=== PATIENT | female | born 2000 | race Caucasian/White ===

== ENCOUNTER 2025-03-07 15:54 | Emergency (ER) | payer BC, SELFPAY ==
[2025-03-07 16:04] VITALS: BP 152/96; PULSE 99; RESP 20; TEMP 37.2; O2SAT 100
--- NOTE | 2025-03-07 16:05 | ED_ITS ---
HPI - URI/Sore Throat General Chief Complaint: Upper Respiratory Infection Stated Complaint: diagnosed strep Time Seen by Provider: 03/07/25 16:19 Source: patient and RN notes reviewed Mode of arrival: ambulatory Limitations: no limitations History of Present Illness HPI Narrative: 24-year-old female presents with concern for getting tested for COVID and flu. Reports she was diagnosed with strep throat yesterday and has started antibiotics but then found out she was exposed to COVID at work. She has been taking her antibiotic as directed. Reports her symptoms are starting to improve MD elicited complaint: sore throat Related Data Home Medications ?Medication ?Instructions ?Recorded ?Confirmed ?Last Taken ?Type amoxicillin 500 mg capsule 500 mg PO Q12H 03/07/25 Unknown History Allergies Allergy/AdvReac Type Severity Reaction Status Date / Time fluoxetine (From [employer]) Allergy Unknown Unknown Verified 03/07/25 16:11 nifedipine Allergy Unknown Unknown Verified 03/07/25 16:11 Review of Systems Review of Systems: CONSTITUTIONAL: Reports malaise, fever. EYES: Denies visual changes, redness, or discharge. ENT: Reports rhinorrhea, congestion, and sore throat. CARDIOVASCULAR: Denies chest pain, palpitations, or edema. RESPIRATORY: Reports cough. Denies dyspnea. GASTROINTESTINAL: Denies abdominal pain, nausea, vomiting, diarrhea SKIN: Denies rash or itching. MUSCULOSKELETAL: Reports myalgia. NEUROLOGIC: Reports headache. All systems reviewed & are unremarkable except as noted in HPI and below PMFSH Comments At time of signature, agree with nursing past medical, surgical, social and family history. There is no relevant family history pertinent to the presenting complaint Exam Narrative: GENERAL: Well-appearing, well-nourished, and in no acute distress. HEAD: Normocephalic EYES: PERRLA, conjunctivae clear ENT: Nares clear. Mucous membranes moist. TM pearly lawson with dull light reflex bilaterally; no tragal tenderness. Oropharynx not erythematous without lesions. Tonsils not enlarged and without exudate, no drooling, no hoarseness, no trismus, uvula midline. NECK: Supple. No lymphadenopathy CHEST: Clear to auscultation, breath sounds equal. No wheezing, rhonchi, rales, or stridor. No respiratory distress, speaks in full sentences. HEART: Regular rate and rhythm. No murmur heard. SKIN: Warm, dry, no rash. NEURO: Alert and oriented x3. PSYCH: Normal mood and affect Course Course Emergency Course: Patient is aware of diagnosis, understands and agrees to treatment plan. Ant icipatory guidance given. Patient agrees to follow-up as directed and is aware of reasons to seek care at the emergency department. Portions of this record may have been created with voice recognition software Level of Care: Express Care Visit Vital Signs Vital signs: Reviewed. MDM - URI/Sore Throat MDM Narrative Medical decision making narrative: Differential diagnosis considered: [place] virus, strep pharyngitis, allergic rhinitis, upper respiratory tract infection, sinusitis, rhinosinusitis, nasopharyngitis. viral pharyngitis, otitis media, otitis externa, pneumonia, bronchitis, viral cough syndrome, viral syndrome, and influenza. Exam findings show no acute concerns or changes; patient is non-toxic appearing and is in no distress. Patient is appropriate for outpatient treatment and follow-up. Lab Data Attestation: I reviewed the patient's lab results. Critical Care Time Critical Care Time Critical Care Time: No Discharge Plan Discharge Clinical Impression: Upper respiratory infection Patient Disposition: Home Condition: Stable Instructions: Upper Respiratory Infection (ED) Additional Instructions: Your rapid COVID and flu tests are negative Continue to take your antibiotic as needed for strep throat. Replace her toothbrush after you have been on antibiotics for 24 hours Also, recommend symptomatic treatment includes: rest, fluids, and increase humidity of the air at home. Recommend Acetaminophen as directed on the bottle to reduce fever, pain, headache. Avoid smoking/second-hand smoke. Please schedule a follow-up visit with your personal physician for further evaluation and treatment within 3-5days. If your symptoms persist, change or worsen significantly before you can contact your personal physician then please, without delay, go to the emergency department for further evaluation. Patient Language: French Follow-up/Referrals: PHYSICIAN,MERCHANDISE ADJUSTMENT CLERK [Primary Care Provider, Internal Medicine] Stand Alone Forms: Work/School Release IP Time of Disposition: 16:28
[2025-03-07 16:29] LABS: EDCOVIDSCREEN Negative (Negative); EDINFLUASCREEN Negative (Negative); EDINFLUBSCREEN Negative (Negative)
== END 2025-03-07 16:31 | disposition home or self-care (01) ==
PROVIDERS: Emergency Provider Nurse Practitioner
DX: J06.9 Acute upper respiratory infection, unspecified (principal); Z20.822 Contact with and (suspected) exposure to COVID-19
CPT/HCPCS: 87426; 87804; 99202; G0463

== ENCOUNTER 2025-03-17 19:28 | Emergency (ER) | payer OTHER, BC, SELFPAY ==
--- NOTE | 2025-03-17 19:29 | ED_ITS ---
HPI - URI/Sore Throat General Chief Complaint: Upper Respiratory Infection Stated Complaint: throat swollen sore Time Seen by Provider: 03/17/25 19:29 Source: patient Mode of arrival: ambulatory Limitations: no limitations History of Present Illness HPI Narrative: Nhung is a 24-year-old female patient presenting to the clinic today with complaints of sore throat. She reports she was seen approximately 2 weeks ago for strep pharyngitis and prescribed prescription for amoxicillin. Took the full course of amoxicillin and states she felt better for 2 days and her symptoms return. She denies any fevers, chills, body aches. Feels as though she has anterior cervical and posterior cervical lymphadenopathy. She reports she feels as though she is having difficulty swallowing and feels as though her throat is swelling. Related Data Allergies Allergy/AdvReac Type Severity Reaction Status Date / Time fluoxetine (From [employer]) Allergy Unknown Unknown Verified 03/17/25 19:36 nifedipine Allergy Unknown Unknown Verified 03/17/25 19:36 Review of Systems Review of Systems: Pertinent positives per HPI. Patient denies any fever, chills, rash, headache, visual changes, dizziness, cough, shortness of breath, chest pain, palpitations, nausea, vomiting, diarrhea, constipation, abdominal pain, or any urinary issues. PMFSH Comments At the time of my signature, I reviewed and agree with the nursing past medical, surgical, social, and family history. There is no relevant family history pertinent to the patient complaint. Exam Narrative: General: Well-developed, well nourished, in no apparent distress Head: Normocephalic, atraumatic Eyes: Pupils equally round and reactive to light bilaterally, EOM intact, sclera and conjunctive clear, no discharge, lids normal Ears: TMs intact and clear, ear canals clear, no drainage, grossly hearing normal. Nose: Nares patent, no discharge, no inflammation, no sinus tenderness. Mouth: Oral pharynx red with bilateral tonsillar enlargement without lesions or masses, good dentition, MMM. Neck: Supple, trachea midline, enlargement of bilateral anterior and left posterior cervical nodes, no thyroid masses or goiter palpable. Cardio: Regular rate and rhythm, s1 and s2 normal, no murmur appreciated. Resp: Clear to auscultation bilaterally, no rhonchi, rales, wheezing or rubs Course Course Emergency Course: Portions of this record may have been created with voice recognition software. Level of Care: Express Care Visit Vital Signs Vital signs: Vital Signs Temperature 36.9 C 03/17/25 19:31 Pulse Rate 96 03/17/25 19:31 Respiratory Rate 20 03/17/25 19:31 Blood Pressure 156/87 H 03/17/25 19:31 Pulse Oximetry 100 03/17/25 19:31 Oxygen Delivery Room Air 03/17/25 19:31 Temperature 36.9 C 03/17/25 19:31 Pulse Rate 96 03/17/25 19:31 Respiratory Rate 20 03/17/25 19:31 Blood Pressure 156/87 H 03/17/25 19:31 Pulse Oximetry 100 03/17/25 19:31 Oxygen Delivery Room Air 03/17/25 19:31 Vital signs reviewed MDM - URI/Sore Throat MDM Narrative Medical decision making narrative: At the time of visit patient is resting comfortably on the exam table. Patient appears to be nontoxic. Complaints of sore throat. She reports she was seen approximately 2 weeks ago for strep pharyngitis and prescribed prescription for amoxicillin. Took the full course of amoxicillin and states she felt better for 2 days and her symptoms return. She denies any fevers, chills, body aches. Feels as though she has anterior cervical and posterior cervical lymphadenopathy. She reports she feels as though she is having difficulty swallowing and feels as though her throat is swelling. On exam patient has red oropharynx with bilateral tonsillar enlargement without exudate has bilateral anterior cervical lymphadenopathy with right posterior cervical lymphadenopathy. No fevers. Strep test was ordered. Labs: Strep test was performed and positive in the clinic today. Plan: I suspect patient has strep pharyngitis. Prescription for Augmentin 10 day course was sent to the pharmacy. Anticipatory guidance given. Supportive measures were discussed with the patient and they voiced understanding discharge instructions and agrees to treatment plan. Return precautions reviewed Differential Diagnosis Differential diagnosis: Likely upper respiratory infection, otitis media, sinusitis, viral infection, bronchitis, influenza, pharyngitis and other (COVID) Discharge Plan Discharge Clinical Impression: Acute streptococcal pharyngitis Patient Disposition: Home Condition: Stable Instructions: Antibiotic Form, Strep Throat (ED) Additional Instructions: Strep test is positive in the clinic today. Change her toothbrush in 24 hours after initiation of the antibiotics. Take prescription medications only as prescribed-Augmentin Increase fluids and stay well hydrated May take Tylenol or motrin as directed on bottle for pain/fever May use Flonase 1 spray in each nare daily May take OTC antihistamines such as Zyrtec or Claritin daily as directed on bottle May apply Vicks vapor rub to chest to open sinuses Sinus rinses for congestion Cepacol spray, cough drops, throat lozenges, warm tea with honey/lemon, gargle salt water to soothe throat BRAT diet for diarrhea Clear liquids x 24 hours then advance as tolerated for nausea/vomiting Go to the ED if you develop a worsening in your condition- high fever not controlled by Tylenol or Motrin, dehydration, weakness, lethargy, shortness of breath, or chest pain. Follow up with your PCP in 3-5 days if symptoms persist. Patient Language: Uzbek Prescriptions: New amoxicillin-pot clavulanate 875-125 mg tablet 1 tablet PO Q12H 10 Days Qty: 20 0RF Follow-up/Referrals: UNKNOWN,DOCTOR [Non-Staff] Time of Disposition: 19:41 Quality NIHSS Nursing Documentation ED NIHSS nursing documentation: reviewed/agree
[2025-03-17 19:31] VITALS: BP 156/87; PULSE 96; RESP 20; TEMP 36.9; O2SAT 100
[2025-03-17 19:45] LABS: EDSTREPNEGPOS1 Positive (Negative)
== END 2025-03-17 19:45 | disposition home or self-care (01) ==
PROVIDERS: Emergency Provider Nurse Practitioner Family
DX: J02.0 Streptococcal pharyngitis (principal)
CPT/HCPCS: 87880; 99213; G0463